=== PATIENT | female | born 1950 | race Caucasian/White ===

== ENCOUNTER 2023-12-16 09:33 | Outpatient (AMB) | payer OTHER, SELFPAY ==
[2023-12-16 09:35] VITALS: BP 142/70; PULSE 56; O2SAT 95; BMI 40.7
--- NOTE | 2023-12-16 09:35 | HO.NEPHOV ---
HPI HPI Comments History of Present Illness Details Tam[place] woman with HTN and DM Here for annual follow up [facility] Social History (Updated 12/16/23 @ 09:37 by Lila Cisneros) Patient Tobacco Use Status: Never used Tobacco Vital Signs 12/16/23 09:35 Height 5 ft 4 in Weight 237 lb BMI 40.7 BP 142/70 H Blood Pressure Location Lt brachial Position Sitting Pulse 56 Pulse Source Pulse Oximeter Pulse Oximetry (%) 95 Oxygen Delivery Method Room Air Physical Exam Vital Signs: Last Vital Signs Pulse 56 12/16/23 09:35 Pulse Ox 95 12/16/23 09:35 Oxygen Delivery Method Room Air 12/16/23 09:35 BMI result Body Mass Index 40.7 Const General: comfortable Nutritional Appearance: well nourished Orientation/consciousness: patient oriented x3 HEENT Head: No normal to inspection Mouth: moist mucous membranes Neck Neck: Yes supple and Yes no JVD Resp Auscultation: clear to auscultation bilaterally, no rales and rub present Cardio Jugular venous distension: no JVD Palpation: no palpable S3 and no palpable S4 Heart sounds: no rubs GI Palpation (GI): Soft to palpation and nontender Percussion: No Fluid wave present General: Yes no CVA tenderness Back/Spine/Pelvis Back: no CVA tenderness Skin General skin exam: no rashes or lesions noted Neuro General: patient oriented x3 Extrem General: Yes no pedal edema and No clubbing Assessment & Plan Assessment & Plan (1) Hypertension: Code(s): I10 - Essential (primary) hypertension Plan: Elderly woman with HTN BP is acceptable Discussed lwo salt diet No change in medications Renal panel ordered DM Goal A1C< 7% Keep Losartan for renal protection Orders: Orders Basic Metabolic Panel Today I10 - Essential (primary) hypertension Coding Level of Care Code Est Pt Level 3 (75720) Diagnoses Hypertension I10 Results Reviewed Results Reviewed: Labs pending Nephrology Results: No Data to Display
== END 2023-12-16 09:57 | disposition home or self-care (01) ==
PROVIDERS: PCP Internal Medicine; Visit Provider Internal Medicine Hypertension Specialist
DX: I10 Essential (primary) hypertension (principal)
CPT/HCPCS: 99213

== ENCOUNTER → 2023-12-16 09:33 | Outpatient (BNVA) | payer OTHER, SELFPAY | PROVIDERS: PCP Internal Medicine; Visit Provider Internal Medicine Hypertension Specialist | DX: I10 Essential (primary) hypertension (principal) | CPT/HCPCS: 99212 ==

== ENCOUNTER 2023-12-16 10:14 | Outpatient (REF) | payer OTHER, SELFPAY ==
[2023-12-16 11:27] LABS: Anion Gap 12 (12-20); Blood Urea Nitrogen 19 mg/dL (9-16); Calcium 9.9 mg/dL (8.4-10.2); Carbon Dioxide 28 mmol/L (22-29); Chloride 101 mmol/L (96-108); Estimated Glomerular Filt Rate > 60; Glucose Random 141 mg/dL (60-115); Potassium 3.7 mmol/L (3.3-5.1); Sodium 137 mmol/L (135-145)
[2023-12-16 12:47] LABS: Creatinine Urine 186.11 mg/dL; Total Protein Urine Random 18 mg/dL (<12)
== END 2023-12-16 10:15 | disposition home or self-care (01) ==
LOC: HO.10HDL 10:14
PROVIDERS: Internal Medicine Nephrology; Visit Provider Internal Medicine Hypertension Specialist
DX: I10 Essential (primary) hypertension (principal)
CPT/HCPCS: 36415; 80048; 82570; 84156

== ENCOUNTER 2024-05-31 09:30 | Outpatient (AMB) | payer OTHER, SELFPAY ==
[2024-05-31 09:37] VITALS: BP 132/64; PULSE 64; O2SAT 96; BMI 40.7
--- NOTE | 2024-05-31 09:37 | HO.NEPHOV_ITS ---
Vital Signs 05/31/24 09:37 Height 5 ft 4 in Weight 237 lb BMI 40.7 BP 132/64 Blood Pressure Location Lt brachial Position Sitting Pulse 64 Pulse Source Pulse Oximeter Pulse Oximetry (%) 96 Oxygen Delivery Method Room Air Intake Visit Reasons: Hypertension/ 6 MO FU/ LVM Passenger Coach Driver Required: No Accompanied by: Self / Same As Patient Allergies No Known Allergies Allergy (Verified 05/31/24 09:39) Medication List - Last Reconciled 05/31/24 by Dima Lanza MD albuterol sulfate 90 mcg/actuation (Ventolin HFA) inhalation aspirin 81 mg PO DAILY atorvastatin 10 mg PO DAILY dulaglutide (Trulicity) mg subcut QWEEK fentanyl 75 mcg/hr 1 patch topical Q3D hydrochlorothiazide 25 mg PO BID insulin aspart U-100 (Novolog FlexPen U-100 Insulin aspart) subcut insulin glargine U-300 conc (Toujeo SoloStar U-300 Insulin) units subcut losartan 50 mg PO DAILY metoprolol succinate ER 25 mg PO DAILY 90 days HPI Comments Details: [place] woman with HTN and DM Here for annual follow up [facility] Social History Patient Tobacco Use Status: Never used Tobacco Physical Exam Vital Signs: Last Vital Signs Pulse 64 05/31/24 09:37 BP 132/64 05/31/24 09:37 Pulse Ox 96 05/31/24 09:37 Oxygen Delivery Method Room Air 05/31/24 09:37 BMI result Body Mass Index 40.7 Const General: comfortable; No acute distress Orientation/consciousness: patient oriented x3 Eyes General: appearance normal, both eyes and all related structures Visual Narayan: normal visual narayan by confrontation Neck Neck: Yes supple and Yes no JVD Resp Effort & Inspection: normal respiratory effort and respiratory effort not decreased Auscultation: rhonchi Cardio Palpation: no palpable S3 and no palpable S4 Heart sounds: no rubs GI Inspection: Yes normal to inspection Palpation (GI): Soft to palpation Percussion: Yes normal to percussion Auscultation: normal bowel sounds General: Yes no CVA tenderness Back/Spine/Pelvis Back: no CVA tenderness Skin General skin exam: no petechiae and no purpura Neuro General: patient oriented x3 and no focal motor deficits Extrem General: No clubbing and No edema Results Reviewed Nephrology Results: Sodium 137 mmol/L (135-145) 12/16/23 Potassium 3.7 mmol/L (3.3-5.1) 12/16/23 Chloride 101 mmol/L (96-108) 12/16/23 Carbon Dioxide 28 mmol/L (22-29) 12/16/23 BUN 19 mg/dL (9-16) H 12/16/23 Creatinine 0.77 mg/dL (0.5-1.4) 12/16/23 Calcium 9.9 mg/dL (8.4-10.2) 12/16/23 Urine Creatinine 186.11 mg/dL 12/16/23 Protein/Creatinin Ratio 0.10 (<0.2) 12/16/23 Assessment & Plan Assessment & Plan (1) Hypertension: Code(s): I10 - Essential (primary) hypertension Category: Medical Plan: Elderly woman with HTN BP is acceptable Discussed lwo salt diet No change in medications Renal panel ordered DM Goal A1C< 7% Keep Losartan for renal protection Orders: Orders Complete Blood Count Auto Diff 11 Months I10 - Essential (primary) hypertension Basic Metabolic Panel 11 Months I10 - Essential (primary) hypertension Coding Level of Care Code Est Pt Level 3 (52710) Diagnoses Hypertension I10
== END 2024-05-31 09:57 | disposition home or self-care (01) ==
PROVIDERS: PCP Internal Medicine; Visit Provider Internal Medicine Hypertension Specialist
DX: I10 Essential (primary) hypertension (principal); E11.9 Type 2 diabetes mellitus without complications
CPT/HCPCS: 99213

== ENCOUNTER → 2024-05-31 09:30 | Outpatient (BNVA) | payer OTHER, SELFPAY | PROVIDERS: PCP Internal Medicine; Visit Provider Internal Medicine Hypertension Specialist | DX: I10 Essential (primary) hypertension (principal) | CPT/HCPCS: 99212 ==

== ENCOUNTER 2025-05-31 09:16 | Outpatient (AMB) | payer OTHER, SELFPAY ==
[2025-05-31 09:20] VITALS: BP 130/78; PULSE 63; O2SAT 90; BMI 41.9
--- NOTE | 2025-05-31 09:20 | HO.NEPHOV_ITS ---
Vital Signs 05/31/25 09:20 Height 5 ft 4 in Weight 244 lb BMI 41.9 BP 130/78 Blood Pressure Location Lt radial Position Sitting Pulse 63 Pulse Source Pulse Oximeter Pulse Oximetry (%) 90 L Intake Visit Reasons: Hypertension , left vm. Silo Man Required: No Accompanied by: Self / Same As Patient Allergies MYRNA Inhibitors Allergy (Unknown, Verified 05/31/25 09:24) Unknown metformin Allergy (Unknown, Verified 05/31/25 09:24) Unknown rosuvastatin Allergy (Unknown, Verified 05/31/25 09:24) Unknown Medication List - Last Reconciled 05/31/25 by Dima Lanza MD albuterol sulfate 90 mcg/actuation (Ventolin HFA) inhalation atorvastatin 10 mg PO DAILY fentanyl 75 mcg/hr 1 patch topical Q3D furosemide 20 mg PO DAILY insulin aspart U-100 (Novolog FlexPen U-100 Insulin aspart) subcut insulin glargine U-300 conc (Toujeo SoloStar U-300 Insulin) units subcut losartan 50 mg PO DAILY metoprolol succinate ER 25 mg PO DAILY sennosides (senna) 17.2 mg PO BEDTIME PRN HPI Comments Details: [place] woman with HTN and DM Here for annual follow up h/o Breast cancer -says she is not on treatment 05/31/25 - The patient is a 75-year-old female presenting with hypertension. - Hypertension: Annual follow-up for management. - Diabetes mellitus: A1c levels fluctuate, recently 9.4 and 8.6. - Breast cancer: Metastasis to spine, no current treatment. - Constipation: Managed with medication. [facility] Social History Patient Tobacco Use Status: Never used Tobacco Physical Exam Vital Signs: Last Vital Signs Pulse 63 05/31/25 09:20 BP 130/78 05/31/25 09:20 Pulse Ox 90 L 05/31/25 09:20 BMI result Body Mass Index 41.9 Comfortable Neck supple no JVD. Lungs entry equal no rales. Heart S1-S2 heard no gallop or rub. Abdomen soft nontender. Neuro alert awake oriented. No asterixis. Extremities no edema. Results Reviewed Nephrology Results: Sodium, (135-145) 137 mmol/L 04/16/24 Potassium, (3.3-5.1) 3.7 mmol/L 12/16/23 Chloride, (96-108) 101 mmol/L 12/16/23 Carbon Dioxide, (22-29) 28 mmol/L 12/16/23 BUN, (9-16) 19 mg/dL H 12/16/23 Creatinine, (0.5-1.4) 0.77 mg/dL 12/16/23 Calcium, (8.4-10.2) 9.9 mg/dL 12/16/23 Urine Creatinine 186.11 mg/dL 12/16/23 Protein/Creatinin Ratio, (<0.2) 0.10 12/16/23 Assessment & Plan Assessment & Plan (1) Hypertension: Code(s): I10 - Essential (primary) hypertension Category: Medical Plan: Elderly woman with HTN BP is acceptable Discussed low salt diet No change in medications Renal function is stable at baseline DM Goal A1C< 7% Keep Losartan for renal protection Orders: Orders Basic Metabolic Panel 1 Year I10 - Essential (primary) hypertension Coding Level of Care Code Est Pt Level 4 (67858) Diagnoses Hypertension I10
--- OUTSIDE RECORDS SUMMARY | 2025-05-31 10:02 | XMS_ITS | Clinical Summary ---
Author Organization [facility] [facility] Address [address] [place] [address] Phone Care Team Providers Care Security Services Specialist Name Role Phone Baldev Ray Primary Care Provider [phone] Allergies Active Allergy Reactions Criticality Noted Date Comments Jared Inhibitors Cough,Rash Low 05/13/2017 Medications Ventolin HFA 90 mcg/actuation inhaler INHALE 1 PUFF BY MOUTH INTO THE LUNGS EVERY 4 HOURS FOR 33 DAYS NEEDED 4 Active atorvastatin (LIPITOR) 10 mg tablet Take 1 tablet (10 mg total) by mouth 1 (one) time each day. 4 Active cholecalciferol (VITAMIN D-3) 50 mcg (2,000 unit) capsule Take 1 capsule (2,000 Units total) by mouth 1 (one) time each day. 4 Active Trulicity 0.75 mg/0.5 mL pen injector injection 4 Active fentaNYL (DURAGESIC) 75 mcg/hr APPLY 1 PATCH TOPICALLY TO THE SKIN EVERY 3 DAYS FOR 72 HOURS 4 Active NovoLOG Flexpen U-100 Insulin 100 unit/mL (3 mL) injection pen ADMINISTER 2 TO 15 UNITS UNDER THE SKIN THREE TIMES DAILY PER SLIDING SCALE 4 Active Toujeo SoloStar U-300 Insulin 300 unit/mL (1.5 mL) CONCENTRATED injection pen Inject 32 Units under the skin at bedtime. 4 Active losartan (COZAAR) 50 mg tablet Take 1 tablet (50 mg total) by mouth 1 (one) time each day. 4 Active metoprolol succinate (TOPROL-XL) 25 mg 24 hr tablet Take 1 tablet (25 mg total) by mouth 1 (one) time each day. 4 Active furosemide (LASIX) 20 mg tablet Take 1 tablet (20 mg total) by mouth 1 (one) time each day. 30 each 11 4 07/20/20 25 Active Active Problems Problem Noted Date Diagnosed Date Hypertension 07/20/2024 Assessment & Plan (07/20/2024 4:44 PM EST): Blood pressure slightly elevated. Diastolic heart failure (CMS/HCC V24, CMS/HCC V2 8) 07/19/2024 Dyspnea 07/19/2024 Overview (07/20/2024): Echo 2 years ago suggested moderate left ventricular diastolic function. She does not appears obviously volume overloaded. She reported taking low-dose of hydrochlorothiazide and we confirmed with the pharmacist that she has not filled medication for more than a year. I will try low-dose furosemide and repeat BMP in 2 weeks. Due to her risk factor, will schedule nuclear perfusion stress test. Assessment & Plan (07/20/2024 4:44 PM EST): Echo 2 years ago suggested moderate left ventricular diastolic function. She does not appears obviously volume overloaded. She reported taking low-dose of hydrochlorothiazide and we confirmed with the pharmacist that she has not filled medication for more than a year. I will try low-dose furosemide and repeat BMP in 2 weeks. Due to her risk factor, will schedule nuclear perfusion stress test. 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 Social History Tobacco Use Types Packs/Day Years Used Date Smoking Tobacco: Never Smokeless Tobacco: Never Tobacco Cessation:Counseling Given: Not Answered Alcohol Use Standard Drinks/Week Comments Not Currently 0 (1 standard drink = 0.6 oz pur e alcohol) Comments Unknown Sex and Gender Information Value Date Recorded Sex Assigned at Not on file Legal Sex Female 11:50 PM EST Gender Identity Not on file Sexual Orientation Not on file Obstetrics History Last Filed Vital Signs Vital Sign Reading Time Taken Comments Blood Pressure 145/76 09/06/2024 12:47 PM EST Pulse 57 07/20/2024 9:38 AM EST Temperature - - Respiratory Rate - - Oxygen Saturation 97% 07/20/2024 9:38 AM EST Inhaled Oxygen Concentration - - Weight 108 kg (239 lb) 09/06/2024 12:34 PM EST Height 162.6 cm (5' 4 ) 09/06/2024 12:34 PM EST Body Mass Index 41.02 09/06/2024 12:34 PM EST Plan of Treatment Health Maintenance Due Date Last Done Comments Diabetes: Annual Foot Exam 1960 Diabetes: Annual Retina Eye Exam 1960 DTaP,Tdap,and Td Vaccines (1 - Tdap) 1967 Pneumococcal Vaccine: 50+ Years (1 of 2 - PCV) 1967 Zoster Vaccines (1 of 2) 1967 Falls Risk Assessment 08/04/2022 Hepatitis C Screening 08/04/2022 Medicare Annual Wellness Visit 08/04/2022 Osteoporosis Screening (Bone Density Screening) 08/04/2022 Social Influencers of Health Screening 08/04/2022 RSV Immunization Adult Patients (1 - 1-dose 75+ series) 2023 Depression Screening 09/01/2024 COVID-19 Vaccine ( season) 2025 06/06/2023, 06/27/2022, 10/16/2021, Additional history exists Influenza Vaccine (#1) 2025 05/22/2022 Diabetes: Annual Urine Albumin-Creatinine Ratio (uACR) 10/12/2025 10/12/2024, 08/24/2024 Diabetes: Blood Sugar Control Test (HGBA1C) 11/17/2025 05/20/2025, 10/12/2024, 08/24/2024 Diabetes: Annual GFR (Glomerular Filtration Rate) 05/20/2026 05/20/2025, 10/12/2024, 08/24/2024 Hypertension/CHF/CAD Annual BMP Blood Test 05/20/2026 05/20/2025, 10/12/2024, 08/24/2024 Cholesterol Screening (Lipid Panel) 05/20/2030 05/20/2025, 10/12/2024, 08/24/2024 Colorectal Cancer Screening: Colonoscopy Discontinued 09/18/2011 HIB Vaccines Aged Out No longer eligi ble based on patient's age to complete this topic HPV Vaccines Aged Out No longer eligi ble based on patient's age to complete this topic Hepatitis A Vaccines Aged Out No long er eligible based on patient's age to complete this topic Hepatitis B Vaccines Aged Out No long er eligible based on patient's age to complete this topic IPV Vaccines Aged Out No longer eligi ble based on patient's age to complete this topic MMR Vaccines Aged Out No longer eligi ble based on patient's age to complete this topic Meningococcal ACWY Vaccine Aged Out N o longer eligible based on patient's age to complete this topic Meningococcal B Vaccine Aged Out No l onger eligible based on patient's age to complete this topic RSV Immunization Patients Under 20 months Aged Out No longer eligible based on patient's age to complete this topic Varicella Vaccines Aged Out No longer eligible based on patient's age to complete this topic Procedures Procedure Name Priority Date/Time Associated Diagnosis Comments HEMOGLOBIN A1C Routine 05/20/2025 10:09 AM EDT Diabetes mellitus ([facility] V24, [facility] V28) Essential hypertension, malignant Hyperlipemia BASIC METABOLIC PANEL Routine 05/20/2025 10:09 AM EDT Diabetes mellitus ([facility]/HCC V24, CMS/HCC V28) Essential hypertension, malignant Hyperlipemia CREATINE KINASE Routine 05/20/2025 10:09 AM EDT Diabetes mellitus ([facility] V24, CMS/[facility] V28) Essential hypertension, malignant Hyperlipemia ASPARTATE AMINOTRANSFERASE Routine 05/20/2025 10:09 AM EDT Diabetes mellitus ([facility] V24, CMS/[facility] V28) Essential hypertension, malignant Hyperlipemia ALANINE AMINOTRANSFERASE Routine 025 10:09 AM EDT Diabetes mellitus ([facility] V24, [facility] V28) Essential hypertension, malignant Hyperlipemia LIPID PANEL WITH REFLEX TO DIRECT LDL Routine 05/20/2025 10:09 AM EDT Diabetes mellitus ([facility] V24, [facility] V28) Essential hypertension, malignant Hyperlipemia MICROALBUMIN CREATININE URINE RATIO Routine 10/12/2024 10:29 AM EST Routine general medical examination at a health care facility Impaired fasting glucose Screening for ischemic heart disease Screening for thyroid disorder DM2 (diabetes mellitus, type 2) ([facility] V24, [facility] V28) EXTERNAL COLONOSCOPY REPORT Routine 09/18/2011 9:50 AM EST from Last 3 Months or Most Recently Relevant to Health Maintenance Results * Lipid panel with reflex to direct LDL (05/20/2025 10:09 AM EDT) Cholesterol 167 0 - 200 mg/dL LAB CHEMISTRY METHOD 05/20/2025 1:18 PM EDT [facility] Triglycerides 129 0 - 150 mg/dL LAB CHEMISTRY METHOD 05/20/2025 1:18 PM [facility] HDL 53 >=40 mg/dL LAB CHEMISTRY METHOD 05/20/2025 1:18 PM T [facility] LDL Calculated 88 0 - 100 mg/dL LAB CHEMISTRY METHOD 05/20/2025 1:18 PM T [facility] Comment:Estimated LDL Calcul ated using equation: Total cholesterol - HDL cholesterol - (Triglycerides/5) VLDL Cholesterol Francesco 25.8 mg/dL LAB CHEMISTRY METHOD 05/20/2025 1:18 PM T [facility] Non HDL Chol. (LDL+VLDL) 114 <145 mg/dL LAB CHEMISTRY METHOD 05/20/2025 1:18 PM EDT [facility] Chol/HDL Ratio 3.2 0.0 - 4.4 LAB CHEMISTRY METHOD 05/20/2025 1:18 PM EDT [facility] Blood Venous blood specimen / Unknown Venipuncture / Unknown 05/20/2025 10:09 AM EDT 05/20/2025 10:09 AM EDT us Ledbetter Mendoza PAYROLL COORDINATOR LAB BLOOD ORDERABLES Final Resul t [facility] [address] [place] [address], [place] [phone] * Alanine aminotransferase (05/20/2025 10:09 AM EDT) ALT (SGPT) 17 10 - 60 unit/L LAB CHEMISTRY METHOD 05/20/2025 1:12 PM EDT [facility] Blood Venous blood specimen / Unknown Venipuncture / Unknown 05/20/2025 10:09 AM EDT 05/20/2025 10:09 AM EDT us Ledbetter Mendoza PAYROLL COORDINATOR LAB BLOOD ORDERABLES Final Resul t Performing Organization Address [facility] Co de Phone Number [facility] [address] [place] [address], [place] [phone] * Aspartate aminotransferase (05/20/2025 10:09 AM EDT) AST (SGOT) 14 10 - 42 unit/L LAB CHEMISTRY METHOD 05/20/2025 1:12 PM EDT [facility] Blood Venous blood specimen / Unknown Venipuncture / Unknown 05/20/2025 10:09 AM EDT 05/20/2025 10:09 AM EDT us Ledbetter Mendoza PAYROLL COORDINATOR LAB BLOOD ORDERABLES Final Resul t Performing Organization Address City/[facility]/ZIP Co de Phone Number [facility] [address] [place] [address], [place] [phone] * (ABNORMAL) Hemoglobin A1c (05/20/2025 10:09 AM EDT) [facility] Hemoglobin A1C 8.6(H) <6.5 % LAB CHEMISTRY METHOD 05/20/2025 1:31 PM EDT [facility] Mean Bld Glu Estim. 200 mg/dL LAB CHEMISTRY METHOD 05/20/2025 1:31 PM EDT [facility] Blood Venous blood specimen / Unknown Venipuncture / Unknown 05/20/2025 10:09 AM EDT 05/20/2025 10:09 AM EDT us Ledbetter [facility] LAB BLOOD ORDERABLES Final Resul t Performing Organization Address City/[facility]/ZIP Co de Phone Number [facility] [address] [place] [address], * Creatine kinase (05/20/2025 10:09 AM EDT) [facility] Total CK 32 22 - 269 unit/L LAB CHEMISTRY METHOD 05/20/2025 1:18 PM EDT [facility] Blood Venous blood specimen / Unknown Venipuncture / Unknown 05/20/2025 10:09 AM EDT 05/20/2025 10:09 AM EDT us Khloe Mendoza PAYROLL COORDINATOR LAB BLOOD ORDERABLES Final Resul t [facility] [address] [place] [address], [place] [phone] * (ABNORMAL) Basic metabolic panel (05/20/2025 10:09 AM EDT) [facility] Sodium 138 133 - 145 mmol/L LAB CHEMISTRY METHOD 05/20/2025 1:12 PM EDT [facility] Potassium 4.1 3.5 - 5.5 mmol/L LAB CHEMISTRY METHOD 05/20/2025 1:12 PM EDT [facility] Chloride 101 96 - 110 mmol/L LAB CHEMISTRY METHOD 05/20/2025 1:12 PM [facility] CO2 31 21 - 32 mmol/L LAB CHEMISTRY METHOD 05/20/2025 1:12 PM [facility] Anion Gap 6 3 - 11 LAB CHEMISTRY METHOD 05/20/2025 1:12 PM [facility] Glucose 112(H) 70 - 100 mg/dL LAB CHEMISTRY METHOD 05/20/2025 1:12 PM [facility] BUN 13 5 - 25 mg/dL LAB CHEMISTRY METHOD 05/20/2025 1:12 PM [facility] Creatinine 0.60 0.50 - 1.10 mg/dL LAB CHEMISTRY METHOD 05/20/2025 1:12 PM [facility] eGFR 93 >=60 mL/min/1. 73m2 LAB CHEMISTRY METHOD 05/20/2025 1:12 PM [facility] Comment:Calculation based on the Chronic Kidney Disease Epidemiology Collaboration (CKD-EPI) equation refit without adjustment for race. BUN/Creatinine Ratio 21.7 LAB CHEMISTRY METHOD 05/20/2025 1:12 PM [facility] Calcium 10.0 8.5 - 10.5 mg/dL LAB CHEMISTRY METHOD 05/20/2025 1:12 PM [facility] Blood Venous blood specimen / Unknown Venipuncture / Unknown 05/20/2025 10:09 AM EDT 05/20/2025 10:09 AM EDT us Ledbetter Mendoza PAYROLL COORDINATOR LAB BLOOD ORDERABLES Final Resul t [facility] [address] [place] [address], * (ABNORMAL) Microalbumin creatinine urine ratio (10/12/2024 10:29 AM EST) Creatinine, Urine 105.0 mg/dL LAB CHEMISTRY METHOD 10/12/2024 3:55 PM EST [facility] Microalb, Ur 34.2(H) 0.0 - 29.0 mg/L LAB CHEMISTRY METHOD 10/12/2024 3:55 PM EST [facility] Microalb/Crea t Ratio 33(H) <30 mg/g creat LAB CHEMISTRY METHOD 10/12/2024 3:55 PM EST [facility] Urine Urine specimen obtained by clean catch procedure / Unknown Non-blood Collection / Unknown 10/12/2024 10:29 AM EST 10/12/2024 10:29 AM EST us Ledbetter Mendoza PAYROLL COORDINATOR LAB URINE ORDERABLES Final Resul t [facility] [address] [place] [address], * External Colonoscopy Report (09/18/2011 9:50 AM EST) Anatomical Region Laterality Modality Endoscopy Historical Provider MD ALCARAZ~PROCEDURE ORDERABLES F inal Result from Last 3 Months or Most Recently Relevant to Health Maintenance Insurance [place] [id number] [facility] MEDICARE Member Subscriber Plan / Payer (Ef fective 2015-Present) Name:Tricia Boyer Relation to Subscriber:Self Name:Tricia Boyer Payer ID:[id number] Group ID:[id number] Type:Not on file Address: [place] [address] [place] [id number] Care Teams Security Services Specialist Relationship Specialty Start Date End Date Baldev Ray DO [address] [place] [id number] PCP - General Internal Medicine 04/29/17
--- OUTSIDE RECORDS SUMMARY | 2025-05-31 10:02 | XMS_ITS | Clinical Summary ---
Author Organization [facility] Address [address] [place] [address] Care Team Providers Care Slab Installer Name Role Phone Baldev Ray DO Primary Care Provider Allergies Active Allergy Reactions Criticality Noted Date Comments Jared Inhibitors 05/13/2017 Lisinopril 05/13/2017 Medications Medication Sig Dispensed Refills Start Date End Date Status metoprolol tartrate (LOPRESSOR) 25 MG tablet Take 25 mg by mouth daily. 0 Active losartan (COZAAR) tablet 50 mg Take 50 mg by mouth daily. 0 Active Active Problems No known active problems Social History Tobacco Use Types Packs/Day Years Used Date Smoking Tobacco: Never Smokeless Tobacco: Never Alcohol Use Standard Drinks/Week Comments No 0 (1 standard drink = 0.6 oz pur e alcohol) Sex and Gender Information Value Date Recorded Sex Assigned at Not on file Gender Identity Not on file Sexual Orientation Not on file Last Filed Vital Signs Vital Sign Reading Time Taken Comments Blood Pressure - - Pulse - - Temperature - - Respiratory Rate - - Oxygen Saturation - - Inhaled Oxygen Concentration - - Weight 117.9 kg (260 lb) 05/13/2017 1:12 PM EDT Height 162.6 cm (5' 4 ) 05/13/2017 1:12 PM EDT Body Mass Index 44.63 05/13/2017 1:12 PM EDT Plan of Treatment Health Maintenance Due Date Last Done Comments Hepatitis C Screening 1950 COVID-19 Vaccine (#1) 1948 Depression Screening 1960 Preventative Health Evaluation 1966 DTap / Tdap / Td (1 - Tdap) 1967 Shingrix-Zoster Vaccine (1 of 2) 1998 Fall Risk Assessment 2013 Osteoporosis Screening (DEXA Scan) 2013 Pneumococcal Vaccine (1 of 1 - PCV) 2013 RSV Adult > 60+ Yrs or Pregn ant (1 - 1-dose 75+ series) 2023 Influenza Vaccine (#1) 2025 Hepatitis B Vaccines Aged Out No long er eligible based on patient's age to complete this topic RSV Ped < 20 months Aged Out No longe r eligible based on patient's age to complete this topic Care Teams Slab Installer Relationship Specialty Start Date End Date Baldev Ray DO [address] [place] [id number] PCP - General Internal Medicine 04/29/17
--- OUTSIDE RECORDS SUMMARY | 2025-05-31 10:02 | XMS_ITS | Clinical Summary ---
Author Organization [facility] Facility Address [address] [address] Care Team Providers Care Central Supply Technician Supervisor Name Role Phone Baldev Rya DO Primary Care Provider [phone] Medications aspirin (ST JUDY) 81 MG EC tablet Take 1 tablet by mouth 1 (one) time each day Active insulin aspart (NovoLOG FLEXPEN) 100 UNIT/ML injection Active letrozole (FEMARA) 2.5 MG chemo tablet Take 1 tablet by mouth 1 (one) time each day Active losartan (Cozaar) 50 MG tablet Comments: Filled Date: Apr 23 2018 8:49PM Patient Notes: TAKE 1 TABLET BY MOUTH DAILY. Duration: 30 04/23/2018 Active omeprazole (PriLOSEC) [address] capsule Comments: Patient Notes: TAKE ONE CAPSULE BY MOUTH DAILY Duration: 30 Active sucralfate (CARAFATE) 1 g tablet Take 1 tablet by mouth 1 (one) time each day Active hydroCHLOROthia zide (HYDRODIURIL) 25 MG tablet 07/24/2020 Active Toujeo SoloStar 300 UNIT/ML solution pen-injector 07/10/2020 Active oxybutynin XL (DITROPAN-XL) 10 MG 24 hr tablet Take 10 mg by mouth daily Active metoprolol succinate XL (TOPROL XL) 25 MG 24 hr tablet TAKE 1 TABLET(25 MG) BY MOUTH EVERY DAY 30 tablet 5 10/19/2022 Active metoprolol succinate XL (TOPROL XL) 25 MG 24 hr tablet TAKE 1 TABLET(25 MG) BY MOUTH EVERY DAY 30 tablet 5 10/19/2022 Active Active Problems Problem Noted Date Diagnosed Date Osteoarthritis of knee 10/10/2020 Hyperglycemia 10/10/2020 Gastro-esophageal reflux disease without esophag itis 10/10/2020 Essential hypertension 10/10/2020 Chronic post-traumatic stress disorder Family History Relation Status Comments Father Mother Social History Tobacco Use Types Packs/Day Years Used Date Smoking Tobacco: Never Alcohol Use Standard Drinks/Week Comments No 0 (1 standard drink = 0.6 oz pur e alcohol) Comments Unknown Sex and Gender Information Value Date Recorded Sex Assigned at Not on file Legal Sex Female 4:45 PM EST Gender Identity Not on file Sexual Orientation Not on file Last Filed Vital Signs Vital Sign Reading Time Taken Comments Blood Pressure 116/60 07/28/2019 12:00 PM EST Pulse 80 07/28/2019 12:00 PM EST Temperature - - Respiratory Rate - - Oxygen Saturation - - Inhaled Oxygen Concentration - - Weight 114 kg (251 lb 12.8 oz) 07/28/2019 12:00 PM EST Height 162.6 cm (5' 4 ) 07/28/2019 12:00 PM EST Body Mass Index 43.22 07/28/2019 12:00 PM EST Plan of Treatment Health Maintenance Due Date Last Done Comments Pneumococcal Vaccine: 50+ Ye ars (1 of 2 - PCV) 1967 Influenza Vaccine (#1) 2025 Hepatitis B Vaccine Aged Out No longe r eligible based on patient's age to complete this topic Insurance [facility] ([id number]) [facility] ([id number]) [place]SE [id number] Care Teams Central Supply Technician Supervisor Relationship Specialty Start Date End Date Baldev Ray DO [address] [place] [address] PCP - General 09/11/20
--- OUTSIDE RECORDS SUMMARY | 2025-05-31 10:02 | XMS_ITS | Encounter Summary ---
Author Organization [facility] Address [address] [place] [address] [place] [address] Phone Care Team Providers Care Nurse Prn Name Role Phone Baldev Ray DO Primary Care Provider [phone] Baldev Ray DO Unavailable [phone] Fabrizio Pagan MD, MPH Unavailable [phone] Encounter Details Date Type Department Care Team (Late st Contact Info) Description 09/17/2017 Procedure Pass DF IMG OUTSIDE IMG [address] [place] [address] Social History Tobacco Use Types Packs/Day Years Used Date Smoking Tobacco: Never Assessed Comments Unknown Sex and Gender Information Value Date Recorded Sex Assigned at Not on file Legal Sex Female 11:10 AM EST Gender Identity Not on file Sexual Orientation Not on file documented as of this encounter Plan of Treatment Not on file documented as of this encounter Visit Diagnoses Not on filedocumented in this encounter Care Teams Nurse Prn Relationship Specialty Start Date End Date Baldev Ray DO [address] [address] PCP - General Internal Medicine 08/21/17 Baldev Ray DO [address] [address] Referring Physician Internal Medicine 08/21/17 Fabrizio Pagan MD, MPH [address] [place] [id number] [email or web address] 09/17/17 documented as of this encounter Additional Source Comments The information contained in this document represents components of the legal health record. It is not the complete legal health record.[facility]
--- OUTSIDE RECORDS SUMMARY | 2025-05-31 10:02 | XMS_ITS | Clinical Summary ---
Author Organization [facility] Address [address] [place] [address] Phone Care Team Providers Care Revenue Audit Clerk Name Role Phone Cory Baldevflor GASTELUM Primary Care Provider [phone] Baldev Ray DO Unavailable [phone] Fabrizio Pagan MD, MPH Unavailable [phone] Allergies Active Allergy Reactions Criticality Noted Date Comments Jared Inhibitors Rash,Cough Low 05/13/2017 Lisinopril 05/13/2017 Medications losartan (COZAAR) 50 MG tablet Take by mouth. Activ e metoprolol tartrate (LOPRESSOR) 25 MG tablet Take by mouth. Activ e oxybutynin (DITROPAN-XL) 10 MG 24 hr tablet Take 10 mg by mouth daily. Active b complex vitamins capsule Take 1 capsule by mouth daily. Active multivitamins-m inerals-folic boav-alrbkqz-ui tein (COMPLETE SENIOR) 0.4-300-250 mg-mcg-mcg Tab Take 1 tablet by mouth daily. Active psyllium (METAMUCIL) Powd 3 (three) times a day. 3 g = 1 teaspoonful (5 mL) Active Active Problems Problem Noted Date Diagnosed Date Bilateral malignant neoplasm of breast in female, estrogen receptor positive 08/31/2017 Social History Tobacco Use Types Packs/Day Years Used Date Smoking Tobacco: Never Education Answer Date Recorded Are you interested in more education? Not on carolyn e 12/27/2022 Are you concerned about learning? Not on file 12/27/2022 No 12/27/2022 No 12/27/2022 Digital Access Answer Date Recorded No 01/25/2023 No 01/25/2023 No 01/25/2023 Reliable internet access at home? Not on file 01/25/2023 Device with a working camera? Not on file Comments Unknown Sex and Gender Information Value Date Recorded Sex Assigned at Not on file Legal Sex Female 11:10 AM EST Gender Identity Not on file Sexual Orientation Not on file Last Filed Vital Signs Vital Sign Reading Time Taken Comments Blood Pressure 174/77 01/07/2018 2:41 PM EDT dfc i Pulse 63 01/07/2018 2:41 PM EDT Temperature 36.7 C (98 F) 01/07/2018 2:41 PM EDT Respiratory Rate 16 01/07/2018 2:41 PM EDT Oxygen Saturation - - Inhaled Oxygen Concentration - - Weight 115.5 kg (254 lb 10.1 oz) 01/07/2018 2:41 PM EDT dfci Height 159.9 cm (5' 2.95 ) 01/07/2018 2:41 PM ED T dfci Body Mass Index 45.17 01/07/2018 2:41 PM EDT Plan of Treatment Health Maintenance Due Date Last Done Comments Adult Td,Tdap Booster 1950 CREATININE LEVEL 1948 LIPID PANEL 1948 POTASSIUM LEVEL 1948 DEPRESSION SCREENING 1960 HEPATITIS C SCREENING 1966 PNEUMOCOCCAL VACCINES (50+ years) (1 of 2 - PCV) 1967 ZOSTER VACCINES (1 of 2) 1967 SMOKING STATUS SCREENING (On ce After 26 Yrs) 1974 OSTEOPOROSIS SCREENING INITI AL (ONE-TIME) 2013 RSV VACCINE (1 - 1-dose 75+ series) 2023 INFLUENZA VACCINE (#1) 2025 05/22/2022 COVID-19 VACCINE (4 - 2024-2 6 season) 2025 06/27/2022, 10/16/2021, 09/25/2021 HEPATITIS A VACCINES Aged Out No long er eligible based on patient's age to complete this topic HIB VACCINES Aged Out No longer eligi ble based on patient's age to complete this topic MENINGOCOCCAL VACCINES (ACWY) Aged Out No longer eligible based on patient's age to complete this topic MENINGOCOCCAL VACCINES (B) Aged Out N o longer eligible based on patient's age to complete this topic Medical Devices Not on file Insurance [address] MEDICARE REPLACEMENT Care Teams Revenue Audit Clerk Relationship Specialty Start Date End Date Mercadante, Baldev, DO [address] [facility] [address] [place] [address] PCP - General Internal Medicine 08/21/17 LyssayuvalvalentinarianaTiaDO [place] [address] [address] Referring Physician Internal Medicine 08/21/17 Fabrizio Pagan MD, MPH [address] [place] [id number] [email or web address] 09/17/17 Additional Source Comments The information contained in this document represents components of the legal health record. It is not the complete legal health record.[facility]
== END 2025-05-31 09:35 | disposition home or self-care (01) ==
LOC: HO.HKA 09:17
PROVIDERS: PCP Internal Medicine; Visit Provider Internal Medicine Hypertension Specialist
DX: I10 Essential (primary) hypertension (principal)
CPT/HCPCS: 99214

== ENCOUNTER → 2025-05-31 09:16 | Outpatient (BNVA) | payer OTHER, SELFPAY | PROVIDERS: PCP Internal Medicine; Visit Provider Internal Medicine Hypertension Specialist | DX: I10 Essential (primary) hypertension (principal) | CPT/HCPCS: 99212 ==